=== PATIENT | female | born 1955 | race Caucasian/White ===

== ENCOUNTER 2018-12-29 01:56 | Emergency (ER) | payer BC, SELFPAY ==
[2018-11-21 10:36] VITALS: BMI 30.1
[2018-12-29 01:57] VITALS: BP 155/92; PULSE 87; RESP 16; TEMP 36.8; O2SAT 95; BMI 30.7
--- NOTE | 2018-12-29 02:15 | RAD_ITS ---
STUDY: X-RAY - RIGHT KNEE REASON FOR EXAM: Female, 63 years old. Fall and pain TECHNIQUE: 4 view(s) of the knee. COMPARISON: None. FINDINGS: Normal visualized distal femur. Normal visualized proximal tibia and fibula. Normal proximal tibiofibular articulation. There is moderate degenerative arthrosis of the medial femorotibial compartment with moderate joint space narrowing. Normal lateral femorotibial compartment. Normal patellofemoral articulation. Nondisplaced mid patellar fracture. Suprapatellar effusion. RAD/Knee 4 or More Views IMPRESSION: Nondisplaced mid patellar fracture. Electronically Signed: Gildardo Morel MD at 2:54 EST Tel , Service support ,
--- NOTE | 2018-12-29 02:16 | ED.DCSUM_ITS ---
- ER Visit Summary Date of Service: 12/29/18 Chief Complaint: Fall, right knee pain History of Present Illness: The patient is a 63 F presenting after fall. Patient states that she tripped on a slippery floor and fell forward landing on both of her knees. She complains of right knee pain. Her left knee has been replaced. She did not hit her head or lose consciousness. She is not on anticoagulants. Denies other injuries. Physical Examination: Vitals are stable. Patient is afebrile. Alert no acute distress. HEENT exam is unremarkable. Neck is nontender. Lungs are clear and equal bilaterally. Heart is regular rate and rhythm. Abdomen is soft nontender nondistended. Extremities right anterior knee tenderness with painful range of motion. Quadricep mechanism intact. Normal distal pulses Skin is warm and dry. No focal neurologic deficit. Remainder of exam is unremarkable. Emergency Department Course and Treatment: Patient was given [place]. Ice pack was applied. Right knee x-ray shows nondisplaced mid patellar fracture. Patient was given knee immobilizer, crutches. She is advised nonweightbearing. Advised to follow-up with orthopedics. She is given prescription for Percocet. Advised return to ED for worsening complaints. Disposition: Discharge home Impression: Right patella fracture status post mechanical fall This note was generated with [employer] dictation software. It may contain incorrect words, spelling, and punctuation that were not noted in review of the chart prior to signing ED Disposition - Plan for ED Patient: Instructions: Patella Fracture Prescriptions: Oxycodone HCl/Acetaminophen [Percocet 5/325] 1 tab PO Q6H PRN PRN 3 Days #12 tab PRN Reason: Pain Prescription Printed Referrals: Chandu Martinez [Primary Care Provider] - Doug Mcadams MD [STAFF PHYSICIAN] -
[2018-12-29] MEDS: HYDROcodone Bitartrate/Apap 5/325 Tablet PO (02:25)
--- NOTE | 2018-12-29 03:17 | ED.DEP ---
ED Disposition - Plan for ED Patient: Instructions: Patella Fracture Prescriptions: Oxycodone HCl/Acetaminophen [Percocet 5/325] 1 tablet PO Q6H PRN PRN 3 Days #12 tablet PRN Reason: Pain Referrals: Chandu Martinez [Primary Care Provider] - Doug Mcadams MD [STAFF PHYSICIAN] -
[2018-12-29 03:36] VITALS: BP 149/81; PULSE 83; RESP 17; O2SAT 96
== END 2018-12-29 03:38 | disposition home or self-care (01) ==
PROVIDERS: Emergency Provider Emergency Medicine; Family Provider Internal Medicine; PCP Internal Medicine
DX: S82.001A Unspecified fracture of right patella, initial encounter for closed fracture (principal); I10 Essential (primary) hypertension; E78.00 Pure hypercholesterolemia, unspecified; Z79.899 Other long term (current) drug therapy; W01.0XXA Fall on same level from slipping, tripping and stumbling without subsequent striking against object, initial encounter; Y93.01 Activity, walking, marching and hiking; Y92.9 Unspecified place or not applicable; Y99.8 Other external cause status
CPT/HCPCS: 73564; 99284

== ENCOUNTER → 2019-10-11 | Outpatient (CLI) | payer BC, SELFPAY ==
--- NOTE | 2019-10-11 14:10 | BI_ITS ---
MAMMOGRAPHY - BILATERAL SCREENING REASON FOR EXAM: Female, 64 years old. Routine annual screening examination. PERTINENT HISTORY: Daughter with breast cancer. Sister with breast cancer. Grandmother with breast cancer. TECHNIQUE: Digital bilateral breast remi (3D mammographic acquisition) in the CC and MLO projections. 2-D mediolateral oblique (MLO) and craniocaudad (CC) views of both breasts were obtained. CAD: Full Field Digital Mammography with Computer Added Detection was performed. COMPARISON: Comparison is made with prior study dated 01/14/2017 and 04/21/2015. FINDINGS: Breast Composition: There are scattered areas of fibroglandular density. There are no dominant masses or suspicious calcifications. No other significant abnormalities are identified. There has been no significant change since the prior study. BI/SCREEN MAMM (CAD) W/REMI BILAT IMPRESSION: Stable bilateral screening mammogram. Yearly follow-up mammogram recommended. (A) ASSESSMENT CATEGORY: BIRADS Category 1: Negative. A letter regarding these results will be sent to the patient by the facility within 30 days. Approximately 10% of breast cancers are not detected by mammography. A normal mammogram should not delay biopsy of a clinically suspicious abnormality. [id number] Electronically Signed: Martin Moreno, at 15:15 EDT , Service support ,
== END | disposition home or self-care (01) ==
PROVIDERS: PCP Internal Medicine; Referring Provider Internal Medicine; Visit Provider Internal Medicine
DX: Z12.31 Encounter for screening mammogram for malignant neoplasm of breast (principal)
CPT/HCPCS: 77063; 77067

== ENCOUNTER 2020-12-25 13:20 | Emergency (ER) | payer BC, SELFPAY ==
[2020-12-25 13:21] VITALS: BP 148/77; PULSE 96; RESP 17; TEMP 35.9; O2SAT 96; BMI 32.5
[2020-12-25 13:24] VITALS: BP 148/77
--- NOTE | 2020-12-25 13:51 | US_ITS ---
STUDY: ABDOMINAL ULTRASOUND - RIGHT UPPER QUADRANT REASON FOR VISIT: Female, 65 years old . 2 day history of epigastric pain. TECHNIQUE: Ultrasound evaluation of the right upper quadrant was performed with real-time and static short-scale imaging. TECHNICAL QUALITY: Adequate. COMPARISON: None. FINDINGS: Liver: The liver is enlarged and measures 20.9 cm. There is increased echogenicity consistent with fatty infiltration. The bile ducts are within normal limits. There is hepatic color flow. The direction of portal flow is hepatopetal. There is no demonstrated mass lesion. Gallbladder: Normal distended gallbladder. The gallbladder wall measures 1.8 mm. There is a negative sonographic Paz''s sign. There is no pericholecystic fluid. There are no gallstones. 2 small polyps are seen in the gallbladder lumen. Common Bile Duct (C.B.D.): The common bile duct measures 4.8 mm. Pancreas: Normal size of the head, body and tail of the pancreas. There is increased echogenicity of the pancreas. There is no demonstrated pancreatic mass or cyst. Right Kidney: Normal size of the right kidney. The right kidney measures 13.9 cm x 6.2 cm x 4.2 cm. Normal renal cortex. The right cortex measures 1.2 cm. There is no demonstrated renal mass or cyst. There is no right hydronephrosis. US/Gallbladder IMPRESSION: Hepatomegaly. Fatty infiltration of the liver. There are 2 small gallbladder polyps. Electronically Signed: Martin Moreno MD at 15:18 EST , Service support ,
--- NOTE | 2020-12-25 13:52 | EX.ED.DYSGE1 ---
HPI History of Present Illness Chief Complaint: Abd Pain Informant: patient Onset/Context/Timing Onset: Yesterday Current Severity: Mild Maximum Severity: Moderate Narrative Narrative: Patient presents with upper abdominal pain, nausea, diarrhea as well as headache. She states that them started last evening when she got home from work. She had significant pain in the epigastric region with difficulty sleeping. Pain is slightly improved this morning. She denies fever but did have chills. She states she had similar symptoms 2 weeks ago that resolved after 1 day. She recently had a colonoscopy performed where she had 3 polyps removed. She states she just got the report back that they were all benign. [facility] Medical History (Updated 12/25/20 @ 16:[address] Tiara Kohli MD) Arthritis Back pain DDD (degenerative disc disease), lumbar Hay fever Hx of renal calculi Hypertension Knee pain Home Medications amlodipine 5 mg tablet 5 mg PO QDAY 01/17/17 [History Last Taken Unknown] evolocumab 140 mg/mL subcutaneous syringe 140 mg SC Q2W 01/17/17 [History Last Taken Unknown] potassium chloride 8 mEq capsule,extended release 8 meq PO QDAY 01/17/17 [History Last Taken Unknown] omeprazole magnesium [Prilosec] 20 mg PO DAILY #20 ea 12/25/20 [Rx Last Taken Unknown] Allergy/AdvReac Type Severity Reaction Status Date / Time ciprofloxacin [From Cipro] Allergy Other Verified 12/25/20 13:20 ciprofloxacin HCl Allergy Other Verified 12/25/20 13:20 [From Cipro] Penicillins [PCN] Allergy Hives Verified 12/25/20 13:20 Family History Other Arthritis Breast cancer Colon cancer High cholesterol Hypertension Osteoporosis Skin cancer Surgical History H/O hysterectomy for benign disease Knee joint replacement status Social History Smoking Status: Never smoker alcohol intake: never substance use type: does not use what type of physical activity do you participate in: walking frequency: 1-2 times per week duration: 15-30 minutes/day ROS ROS ED Constitutional Constitutional ED: Reports chills; Denies fever(s) Eyes Eyes: Denies blurry vision ENT ENT ED: Denies rhinorrhea or sore throat Cardiovascular Cardiovascular: Denies chest pain or palpitations Respiratory/Chest Respiratory/Chest: Denies cough or dyspnea Gastrointestinal Gastrointestinal: Reports abdominal pain, diarrhea and nausea; Denies vomiting Genitourinary Genitourinary ED: Denies dysuria Musculoskeletal Musculoskeletal: Denies neck pain Integumentary Denies rash Neurologic Neurologic: Reports headache(s) Psychiatric Psychiatric: Denies anxiety or depression Endocrine Endocrinology: Denies polydipsia or polyuria Allergic/Immunologic Allergic/Immunologic ED: Denies urticaria EXAM Physical Exam Const Vital Signs: 12/25/20 13:21 12/25/20 13:24 12/25/20 15:13 Temperature 96.7 F L Temperature Source Temporal Pulse Rate 96 89 Respiratory Rate 17 14 Blood Pressure 148/77 H 148/77 H 130/85 H Blood Pressure Mean 100 100 100 Pulse Ox 96 92 Oxygen Delivery Method Room Air Room Air Positive well nourished and well developed General Appearance ED: well developed HEENT Reports moist mucous membranes Eyes PERRL and EOMs intact bilaterally Neck no lymphadenopathy and supple Chest Wall inspection of chest normal and palpation of chest normal Resp normal respiratory effort and clear to auscultation bilaterally Cardio regular rate and regular rhythm GI Auscultation: normoactive bowel sounds Palpation: soft and tender epigastric; Negative for guarding or rebound tenderness present Neuro oriented x3 Sensorium / Orientation: alert Skin no rashes or lesions noted MDM MDM MDM Narrative Medical decision making narrative: Lab work and right upper quadrant ultrasound obtained. Patient was given a dose of morphine and Zofran for pain and nausea. Lab Data Attestation: I reviewed the patient's lab results. Labs: Laboratory Results - last 24 hr 12/25/20 12/25/20 14:13 14:13 WBC 7.6 RBC 5.05 Hgb 15.6 H Hct 43.6 MCV 86.3 MCH 30.9 MCHC 35.8 RDW Std Deviation 38.1 RDW Coeff of Kiley 12.0 Plt Count 210 MPV 9.3 Immature Gran % (Auto) 0.400 Neut % (Auto) 82.0 H Lymph % (Auto) 10.5 L Owen % (Auto) 5.5 Eos % (Auto) 1.3 Baso % (Auto) 0.3 Absolute Neuts (auto) 6.3 Absolute Lymphs (auto) 0.80 L Nucleated RBC % 0 Sodium 138 Potassium 2.9 L Chloride 103 Carbon Dioxide 27.0 Anion Gap 8 BUN 12 Creatinine 0.70 Estim Creat Clear Calc 90.75 Est GFR (MDRD) Af Amer 109 Est GFR (MDRD) Non-Af 90 BUN/Creatinine Ratio 17.3 Glucose 143 H Calcium 8.4 L Total Bilirubin 0.70 Direct Bilirubin 0.20 AST 15 ALT 25 Alkaline Phosphatase 74 Total Protein 6.7 Albumin 3.3 Globulin 3.4 Lipase 77 Radiography Diagnostic Testing: Clinical Impression(s) from Imaging Studies Gallbladder Ultrasound 12/25/20 13:51 IMPRESSION: Hepatomegaly. Fatty infiltration of the liver. There are 2 small gallbladder polyps. Electronically Signed: Martin Moreno MD at 15:18 EST , Service support , Treatment and Re-Evaluation Comments:: Patient's lab work is reviewed with her. Potassium is low at 2.9. She states she does take 20 mEq of potassium daily. I did encourage her to double this to 40 mEq for the next 3 days. She still complained of epigastric pain and is given a GI cocktail. She will be given a prescription for Prilosec. Discharge Plan Triage Chief Complaint: Abd Pain ED Provider: Tiara Kohli Dx/Rx/DC Orders Clinical Impression: Epigastric abdominal pain, Hypokalemia Instructions: ED Hypokalemia, ED Epigastric Pain Uncertain Cause Prescriptions: New Prilosec 10 mg susp,delayed release for recon 20 mg PO DAILY Qty: 20 RF: 0 No Action evolocumab [Repatha Syringe] 140 mg/mL syringe 140 mg SC Q2W RF: 0 potassium chloride 8 mEq capsule, extended release 8 meq PO QDAY RF: 0 amlodipine 5 mg tablet 5 mg PO QDAY RF: 0 Primary Care Provider: Chandu Martinez Referrals: Chandu Martinez DO [Primary Care Provider] - 1-2 Weeks Activity Restrictions/Additional Instructions: As discussed, your potassium is low today. Please double your potassium to 40 mEq daily for the next 3 days. Disposition Disposition: Home, Self Care
[2020-12-25] MEDS: Ondansetron 4 MG/2 ML Vial IV (14:15)
[2020-12-25] MEDS: Morphine 4 MG/ML Syringe IV (14:15)
[2020-12-25] MEDS: 0.9% Normal Saline 1,000 ML 150 ML IV (14:15)
[2020-12-25 14:23] LABS: Absolute Neutrophil Count 6.3 X10^3/uL (2.0-7.7); Basophil# 0.02 X10^3/uL; Basophil% 0.3 % (0-1); Eosinophils% 1.3 % (0-5); Hematocrit 43.6 % (37-47); Hemoglobin 15.6 g/dL (12.0-15.0); Lymphocyte % 10.5 % (19-41); Mean Corp Hgb Conc 35.8 g/dL (32-36); Mean Corpuscular Hgb 30.9 pg (27.0-32.0); Mean Corpuscular Volume 86.3 fL (81-99); Mean Platelet Vol. 9.3 fl (6.2-12.0); Monocyte# 0.42 X10^3/uL; Monocyte% 5.5 % (0-10); NRBC Flagged by Analyzer 0 % (0-5); Neutrophil # 6.26 X10^3/uL (2.7-7.7); Platelet Count 210 K/mm3 (150-450); RBC Distribution Width SD 38.1 fl (35.1-43.9); Red Blood Count 5.05 M/mm3 (4.2-5.4); White Blood Count 7.6 K/mm3 (4.4-11.0)
[2020-12-25 14:51] LABS: AST(SGOT) 15 U/L (15-37); Alanine Aminotransfer ALT/SGPT 25 U/L (13-56); Albumin, Serum 3.3 g/dL (3.2-5.0); Alkaline Phosphatase 74 U/L (45-117); Anion Gap 8 (5-15); BUN 12 mg/dL (7-18); BUN/Creat Ratio 17.3 RATIO (10-20); Calcium,Total 8.4 mg/dL (8.5-10.1); Chloride 103 mmol/L (98-107); EST Glomerular Filtration Rate 90 mL/min (>60); Est Glom Filt Rate - Afr Amer 109 mL/min (>60); Estimated Creatinine Clearance 90.75 ml/min; Globulin 3.4 g/dL (2.2-4.2); Glucose 143 mg/dL (74-106); Lipase 77 U/L (73-393); Potassium 2.9 mmol/L (3.5-5.1); Protein, Total 6.7 g/dL (6.4-8.2); Sodium Level 138 mmol/L (136-145)
[2020-12-25 15:13] VITALS: BP 130/85; PULSE 89; RESP 14; O2SAT 92
[2020-12-25] MEDS: Mag Hydrox/Al Hydrox/Simeth 30 ML UDC PO (16:04)
[2020-12-25 16:20] VITALS: BP 130/64; PULSE 86; RESP 16; O2SAT 95
[2020-12-25] MEDS: Acetaminophen 500 MG Tablet 1000 MG PO (16:24)
--- NOTE | 2020-12-25 16:38 | ED.RN ---
THIS NURSE REVIEWED D/C INSTRUCTIONS WITH PT. PT VERBALIZED UNDERSTANDING OF INSTRUCTIONS. PT DENIES FURTHER NEED OR QUESTIONS AT THIS TIME.
== END 2020-12-25 16:39 | disposition home or self-care (01) ==
PROVIDERS: Emergency Provider Emergency Medicine; PCP Internal Medicine
DX: R10.13 Epigastric pain (principal); E87.6 Hypokalemia; M19.90 Unspecified osteoarthritis, unspecified site; I10 Essential (primary) hypertension; Z79.899 Other long term (current) drug therapy
CPT/HCPCS: 76705; 80048; 80076; 83690; 85025; 96361; 96374; 96375; 99284; J7030; A4216; J2405

== ENCOUNTER → 2021-01-06 07:15 | Outpatient (CLI) | payer BC, SELFPAY ==
--- NOTE | 2021-01-06 07:25 | US_ITS ---
STUDY: ABDOMINAL ULTRASOUND - ELASTOGRAPHY REASON FOR VISIT: Female, 65 years old. Nonalcoholic steatohepatitis. . TECHNIQUE: Liver stiffness measurements were obtained on a TickPick RS 85 ultrasound machine using a CA 1-7 probe following the SRU guidelines. 3 measurements were obtained using a 2-D-SWE method. TheIQR/M was 22% suggesting a quality data set. TECHNICAL QUALITY: Adequate. COMPARISON: Comparison is made with prior study 12/25/2020. FINDINGS: Liver: Hepatomegaly. Fatty infiltration of the liver. Median liver stiffness measured 7.3 kPa. US/Elastography Parenchyma/Organ IMPRESSION: Liver stiffness measures 7.3 kPa compatible with F2 Metavir score. Electronically Signed: Martin Moreno MD at 8:45 EST , Service support ,
== END ==
PROVIDERS: PCP Internal Medicine; Referring Provider Internal Medicine Gastroenterology; Visit Provider Internal Medicine Gastroenterology
DX: K75.81 Nonalcoholic steatohepatitis (NASH) (principal)
CPT/HCPCS: 76981

== ENCOUNTER → 2021-02-04 13:35 | Outpatient (CLI) | payer BC, SELFPAY | PROVIDERS: PCP Internal Medicine; Referring Provider Physician Assistant Medical; Visit Provider Physician Assistant Medical | DX: U07.1 COVID-19 (principal) | CPT/HCPCS: 87635; U0005; U0003 ==

== ENCOUNTER 2021-02-26 13:47 | Outpatient (CLI) | payer BC, SELFPAY ==
[2021-02-26 15:35] LABS: Absolute Lymphocyte Count 2.13 X10^3/uL (0.83-4.51); Absolute Neutrophil Count 3.8 X10^3/uL (2.0-7.7); Basophil# 0.03 X10^3/uL; Basophil% 0.4 % (0-1); Eosinophil# 0.29 X10^3/uL; Eosinophils% 4.2 % (0-5); Hemoglobin 15.8 g/dL (12.0-15.0); Lymphocyte # 2.13 X10^3/ul (0.83-4.51); Lymphocyte % 30.8 % (19-41); Mean Corp Hgb Conc 35.9 g/dL (32-36); Mean Corpuscular Hgb 30.7 pg (27.0-32.0); Mean Corpuscular Volume 85.4 fL (81-99); Mean Platelet Vol. 10.1 fl (6.2-12.0); Monocyte% 8.7 % (0-10); NRBC Flagged by Analyzer 0 % (0-5); Neutrophil # 3.84 X10^3/uL (2.7-7.7); Neutrophil % 55.6 % (47-70); Platelet Count 218 K/mm3 (150-450); RBC Distribution Width CV 12.1 % (11.6-14.6); RBC Distribution Width SD 37.8 fl (35.1-43.9); Red Blood Count 5.15 M/mm3 (4.2-5.4); White Blood Count 6.9 K/mm3 (4.4-11.0)
[2021-02-26 16:10] LABS: ALB/GLOB Ratio 1.1 RATIO (0.9-2.4); AST(SGOT) 20 U/L (15-37); Alanine Aminotransfer ALT/SGPT 34 U/L (13-56); Albumin, Serum 3.6 g/dL (3.2-5.0); Alkaline Phosphatase 73 U/L (45-117); Anion Gap 4 (5-15); BUN 15 mg/dL (7-18); CRP < 2.90 mg/L (0.0-3.0); Calcium,Total 9.1 mg/dL (8.5-10.1); Chloride 106 mmol/L (98-107); Creatinine, Serum 0.68 mg/dL (0.55-1.02); EST Glomerular Filtration Rate 92 mL/min (>60); Est Glom Filt Rate - Afr Amer 111 mL/min (>60); Globulin 3.4 g/dL (2.2-4.2); Glucose 121 mg/dL (74-106); LDH 215 U/L (84-246); Sodium Level 139 mmol/L (136-145)
[2021-02-26 16:24] LABS: Erythrocyte Sedimentation Rate 5 mm/hr (0-30)
[2021-03-01 09:32] LABS: HIV - WCH Non-Reactive (Nonreactive); Hepatitis B Surface Antigen Non-Reactive (Nonreactive)
[2021-03-01 10:04] LABS: Hepatitis C Antibody REACTIVE (Nonreactive)
[2021-03-01 13:07] LABS: Anti-Centromere B Ab <0.2 AI (0.0-0.9); Anti-Chromatin <0.2 AI (0.0-0.9); Anti-Jo <0.2 AI (0.0-0.9); Anti-Scleroderma-70 AB 0.5 AI (0.0-0.9); RNP Ab <0.2 AI (0.0-0.9); SJOGREN'S Anti-SS-A test 0.2 AI (0.0-0.9); SJOGREN'S Anti-SS-B test < 0.2 AI (0.0-0.9); Smith Ab <0.2 AI (0.0-0.9)
[2021-03-01 14:29] LABS: Anti-dsDNA Ab 1 IU/mL (0-9)
[2021-03-04 00:07] LABS: HCV Quant. RNA PCR HCV Not Detected IU/mL (.); Hepatitis A AB, Total Negative (Negative); Hepatitis B Core Ab Total Negative (Negative)
[2021-03-04 08:37] LABS: Hepatitis B Core AB IgM Negative (Negative)
== END 2021-02-26 23:59 | disposition short-term general hospital (02) ==
LOC: LAB 13:49
PROVIDERS: PCP Internal Medicine; Visit Provider Internal Medicine Gastroenterology
DX: B19.20 Unspecified viral hepatitis C without hepatic coma (principal)
CPT/HCPCS: 36415; 80053; 83615; 85025; 85652; 86140; 86225; 86235; 86703; 86704; 86705; 86708; 86803; 87340; 87521; 87522; 87902

== ENCOUNTER 2021-03-04 15:52 | Outpatient (CLI) | payer BC, SELFPAY ==
[2021-03-04 17:51] LABS: Cholesterol 176 mg/dL (200); High Density Lipoprotein 58 mg/dL; Triglycerides 229 mg/dL; Very Low Density Lipoprotein 46 mg/dL (5-40)
[2021-03-04 17:53] LABS: Partial Thromboplast Time 31.4 Seconds (24.1-36.2)
[2021-03-04 17:57] LABS: Prothrombin Time (Protime)PT. 12.7 SECONDS (11.7-14.9)
== END 2021-03-04 23:59 | disposition short-term general hospital (02) ==
PROVIDERS: Nurse Practitioner Adult Health; PCP Internal Medicine; Visit Provider Internal Medicine Gastroenterology
DX: K76.0 Fatty (change of) liver, not elsewhere classified (principal); R16.0 Hepatomegaly, not elsewhere classified
CPT/HCPCS: 36415; 80061; 85610; 85730

== ENCOUNTER 2021-03-26 13:14 | Outpatient (CLI) | payer BC, SELFPAY ==
--- NOTE | 2021-03-26 13:24 | MRI_ITS ---
STUDY: MRI RIGHT KNEE REASON FOR EXAM: Female, 65 years old. RIGHT medial knee swelling, pain of joint, arthritis TECHNIQUE: Standardized fat and water weighted pulse sequences were obtained in all 3 orthogonal planes. COMPARISON: Right knee x-ray dated March 15, 2021 FINDINGS: There is severe narrowing in the medial compartment with [id number] contact and full-thickness loss of cartilage. The body and posterior horn medial meniscus are completely torn and macerated and extruded. The anterior horn is normal. Multiple small to large parameniscal cysts are present on the medial side of the joint, some herniating beyond the medial collateral ligament resulting in distention of the space between the capsule and outer band. The largest cyst measures 2.48 cm in diameter. Bulky peripheral osteophyte formation is present. Normal medial collateral ligamentous complex (MCL). Normal distal semimembranosus, gracilis and semitendinosus tendons. There is attrition of the free edge of the lateral meniscus without a demonstrated meniscal tear. There is diffuse, less than 50% thickness articular cartilage loss of the lateral femorotibial compartment. There is mild osteoarthritic spur formation of the lateral knee compartment. Normal proximal tibiofibular articulation. Normal lateral collateral (fibular) ligament. Normal popliteus tendon. Normal biceps femoris tendon. There is edema with swelling and loss of definition of the of the ACL fascicles, producing a celery stick appearance, with preservation of the continuity of fibers, consistent with mucoid cystic degeneration. Normal posterior cruciate ligament (PCL). Normal congruent patellofemoral articulation. There is diffuse, full thickness articular cartilage loss of the patellofemoral compartment, with mild peripheral cortical osteophyte formation. Normal medial and lateral patellar retinaculum. Normal quadriceps tendon. Normal patellar tendon. Normal Hoffa''s fat pad. Small joint effusion noted. Small Angel''s cyst also noted. Mild edema is present in the distal fibers of the vastus medialis muscle. The soft tissues are unremarkable. The otherwise visualized osseous structures are unremarkable. MRI/Lower Ext Joint Only (Routine) IMPRESSION: 1. Severe DJD of the medial compartment with maceration and tearing of the meniscus and other osteoarthritic changes. 2. Numerous parameniscal cysts extruded from the torn meniscus into the space between the medial collateral ligament and medial joint capsule Electronically Signed: Rahul Whitten MD at 19:05 EST ,
== END 2021-03-26 23:59 | disposition home or self-care (01) ==
LOC: MRI 13:24
PROVIDERS: PCP Internal Medicine; Referring Provider Orthopaedic Surgery; Visit Provider Orthopaedic Surgery
DX: R23.4 Changes in skin texture (principal); R22.41 Localized swelling, mass and lump, right lower limb; M17.11 Unilateral primary osteoarthritis, right knee
CPT/HCPCS: 73721

== ENCOUNTER 2021-04-15 14:50 | Outpatient (CLI) | payer BC, SELFPAY ==
--- NOTE | 2021-04-15 15:02 | CT_ITS ---
STUDY: CT right Lower Extremity W/O Contrast Injection 04/15/2021 4:10 PM REASON FOR EXAM: Female, 65 years old. templating for a right TKA Individualized dose optimization techniques were used for this CT. TECHNIQUE: templating for a right TKA LJ protocol COMPARISON: No priors for comparison. FINDINGS: A celia was placed along the lateral aspect of the patient''s lower extremity. CT scans were obtained over the hip, knee, and ankle, separately. IMPRESSION: The images will be utilized by the surgical prosthesis pig conveyor operator for measurement and planning purposes.. Electronically Signed: Chicho Smith MD at 16:10 EST , CT/Extremity Lower without Contra
== END 2021-04-15 23:59 | disposition home or self-care (01) ==
LOC: CT 14:51
PROVIDERS: PCP Internal Medicine; Referring Provider Orthopaedic Surgery; Visit Provider Orthopaedic Surgery
DX: M17.11 Unilateral primary osteoarthritis, right knee (principal)
CPT/HCPCS: 73700

== ENCOUNTER 2021-04-27 05:44 | Inpatient (IN) | payer BC, SELFPAY ==
--- NOTE | 2021-04-20 10:12 | EKG12_ITS ---
Test Reason : PREOP Blood Pressure : / mmHG Vent. Rate : 083 BPM Atrial Rate : 083 BPM P-R Int : 130 ms QRS Dur : 088 ms QT Int : 386 ms P-R-T Axes : -03 020 034 degrees QTc Int : 453 ms Normal sinus rhythm Normal ECG Confirmed by STACIE HILL, SHUBHAM ([id number]), school photograph editor LUCA RAMOS ([id number]) on 04/21/2021 9:54:36 AM Referred By: Milan Cosme Confirmed By:SHUBHAM QUINONES MD
[2021-04-20 11:22] LABS: Absolute Lymphocyte Count 1.63 X10^3/uL (0.83-4.51); Absolute Neutrophil Count 4.4 X10^3/uL (2.0-7.7); Basophil# 0.04 X10^3/uL; Basophil% 0.6 % (0-1); Eosinophil# 0.28 X10^3/uL; Eosinophils% 4.1 % (0-5); Hematocrit 46.4 % (37-47); Hemoglobin 16.3 g/dL (12.0-15.0); Lymphocyte # 1.63 X10^3/ul (0.83-4.51); Mean Corp Hgb Conc 35.1 g/dL (32-36); Mean Corpuscular Hgb 30.8 pg (27.0-32.0); Mean Corpuscular Volume 87.5 fL (81-99); Mean Platelet Vol. 10.2 fl (6.2-12.0); Monocyte# 0.46 X10^3/uL; Monocyte% 6.8 % (0-10); NRBC Flagged by Analyzer 0 % (0-5); Neutrophil # 4.36 X10^3/uL (2.7-7.7); Neutrophil % 64.1 % (47-70); Platelet Count 229 K/mm3 (150-450); RBC Distribution Width CV 12.5 % (11.6-14.6); RBC Distribution Width SD 40.2 fl (35.1-43.9); White Blood Count 6.8 K/mm3 (4.4-11.0)
[2021-04-20 11:33] LABS: Prothrombin Time (Protime)PT. 12.3 SECONDS (11.7-14.9)
[2021-04-20 11:34] LABS: Partial Thromboplast Time 30.8 Seconds (24.1-36.2)
[2021-04-20 11:44] LABS: Magnesium 1.8 mg/dL (1.6-2.6)
[2021-04-20 11:46] LABS: Anion Gap 4 (5-15); BUN 14 mg/dL (7-18); BUN/Creat Ratio 18.9 RATIO (10-20); Calcium,Total 9.2 mg/dL (8.5-10.1); Chloride 104 mmol/L (98-107); Creatinine, Serum 0.74 mg/dL (0.55-1.02); EST Glomerular Filtration Rate 84 mL/min (>60); Est Glom Filt Rate - Afr Amer 101 mL/min (>60); Glucose 130 mg/dL (74-106); Potassium 3.2 mmol/L (3.5-5.1); Sodium Level 141 mmol/L (136-145)
[2021-04-21 13:36] LABS: Fructosamine 261 umol/L (0-285)
[2021-04-27] VITALS (14 sets, daily range): BP systolic 90–142; BP diastolic 52–79; PULSE 73–95; RESP 14–18; TEMP 36.3–37; O2SAT 95–99; BMI 32.8
[2021-04-27] MEDS: Lactated Ringers 1,000 ML 15 ML IV (06:25)
[2021-04-27] MEDS: Gabapentin 600 MG Tablet PO (06:47)
[2021-04-27] MEDS: Celecoxib 200 MG Capsule 400 MG PO (06:47)
[2021-04-27] MEDS: Scopolamine 1mg/72hr Patch 1 PATCH TD (06:47)
[2021-04-27] MEDS: Acetaminophen 500 MG Tablet 1000 MG PO ×3 (06:47→20:42)
--- NOTE | 2021-04-27 07:27 | PCM.HP.BLA ---
History and Physical Date of Admission: 04/27/21 Date of Service: 04/16/21 MR#:[id number]:[id number]: KYMBERLY REED #:[id number]:1955 Provider:Dr. Milan Cosme DOAge/Sex: 65/F Location:[facility]:Signed Intake Intake Visit Reasons: right knee Chief Complaint: right knee Allergies ciprofloxacin HCl [From Cipro] Allergy (Verified 03/04/21 14:50) Other Penicillins [PCN] Allergy (Verified 03/04/21 14:50) Hives [facility] Medical History (Updated 04/16/21 @ 11:[address] Milan Cosme DO) Arthritis Back pain DDD (degenerative disc disease), lumbar Diarrhea Enlarged liver Gastric reflux Hay fever Hepatitis C High cholesterol Hx of renal calculi Hypertension Knee pain Wears glasses Wears partial dentures Surgical History (Updated 01/26/21 @ 09:58 by Agnes Torres) H/O hysterectomy for benign disease Hx of lithotripsy Knee joint replacement status Family History Other Arthritis Breast cancer Colon cancer High cholesterol Hypertension Osteoporosis Skin cancer Social History Smoking Status: Never smoker alcohol intake: never substance use type: does not use what type of physical activity do you participate in: walking frequency: 1-2 times per week duration: 15-30 minutes/day HPI right knee Details: Parts of this documentation were recorded by a scribe, this documentation accurately reflects the service provided and the decisions made by me, Dr. Milan Cosme DO 04/16/21 1115. KYMBERLY REED is a 65 year old F here today for right knee IOVERA tx. She is scheduled to undergo a right TKA on 04/27/21. Ortho Exam General General: Yes no acute distress Neurologic: Yes alert and Yes oriented x3 Psychologic: Yes reasonable and appropriate Right Knee Skin/Wound: Yes erythema, No ecchymosis and Yes swelling Knee ROM: No ROM-Extension -20 to 0 (lacking 10 ) and No ROM-Flexion 0-140 (110) Examination: Yes Med jt line tenderness Stability: NML: Anterior Drawer and NML: Posterior Drawer KNEE: significant localized swelling over medial knee, area that is firm tender to touch asymmetry of the quad, more atrophic of the righ compaired to left quad. sensation intact to light touch able to preform dorsiflexion and plantar flexion 2/4 pulses to lower extremity. Office Procedures Iovera Procedure Details:: Preoperative diagnosis : righ tknee pain Postoperative diagnosis: Same Procedure: Cryotherapy with Iovera device to anterior femoral cutaneous nerve and 2 branches of the infrapatellar saphenous nerve III nerves in total Description of procedure: Patient was brought back to the procedure room the operative extremity was identified by both patient and physician. The PIP flexion crease was measured to the midpoint of the patella and this distance was divided in 3 resulting in 10 cm location proximal to the midpoint of the patella. This line was extended medial and lateral to the extent of the edges of the patella. This was our treatment line for the anterior femoral cutaneous nerve. A second treatment line was made 5 cm medial to the inferior pole of the patella and 5 cm distally. The leg was prepped with alcohol and Betadine. Lidocaine with epi was used along the treatment lines. Using the Iovera device treatment lines were treated with 1 minute cycles. Reproduction of paresthesias was monitored in the area of nerve distribution. Once all 3 nerves were treated across the 2 treatment lines patient was cleaned and a light dressing with 4 x 4 and Lb wrap was applied. Patient tolerated the procedure without complication. Supplemental Info Reviewed the pre-operative plans with the patient. Risks and benefits of the procedure were fully explained, including but not limited to infection, neurovascular injury, continued pain, arthritis, stiffness, need for further surgery, re-injury, DVT, PE, general risks of anesthesia, and loss of limb or life. The patient understands all the risks and does wish to proceed with written consent for right TKA. She was given surgical soap and presurgical ensure drinks today. She wishes to proceed with IOVERA tx today. Educated that she will keep the DCD in place until this evening and then she shouldn't have to apply a new dressing. No restrictions. Follow up 2 weeks post op or sooner if pain, swelling, numbness or associated symptoms, or concerns develop. All questions answered. Patient in agreement of plan. Coding Level of Care Code Attention Nailhead Setter Diagnoses Right knee pain M25.561 Assessment and Plan Assessment and Plan (1) Right knee pain: Status: Acute Plan - Dr. Milan Cosme, DO: Reviewed the pre-operative plans with the patient. Risks and benefits of the procedure were fully explained, including but not limited to infection, neurovascular injury, continued pain, arthritis, stiffness, need for further surgery, re-injury, DVT, PE, general risks of anesthesia, and loss of limb or life. The patient understands all the risks and does wish to proceed with written consent for right TKA. She was given surgical soap and presurgical ensure drinks today. She wishes to proceed with IOVERA tx today. Educated that she will keep the DCD in place until this evening and then she shouldn't have to apply a new dressing. No restrictions. Follow up 2 weeks post op or sooner if pain, swelling, numbness or associated symptoms, or concerns develop. All questions answered. Patient in agreement of plan. Plan Details Other Orders: Orders: Iovera Today M25.569 Goals & Barriers: Goals Decrease spasm Decrease pain Decrease inflammation Barriers Work requirements 04/16/21 1124<Electronically signed by Milan Cosme DO>Date Milan Cosme DO Cosigner Signature:Date (if applicable) CC: ~ I have re-examined the patient. There are no clinical changes since date of exam
[2021-04-27 08:02] LABS: Bedside Glucose 172 mg/dL (74-106)
--- NOTE | 2021-04-27 08:15 | KNEE_PTH ---
PATIENT: KYMBERLY REED LOC: [facility] U#:[id number] AGE/SX: 65/F ROOM: MS319 RE04/27/[address]: Dr. Milan Cosme DO : 1955 BED: 1 DIS: 04/28/2021 SPEC #: [id number] RECD: 04/27/21 11:14 STATUS: PARUL ADAMSMily #: [id number] ERIC: 04/27/21 08:[address]: Milan Cosme DEPT: SURGICAL PATHOLOGY RECD BY: Glendy Mendoza ENTERED: 04/27/21 13:55 SP TYPE: TOTAL KNEE OTHR DR: Dr. Chandu Martinez, DO Tissues: Knee, NOS Procedures: Decalcification bone/plaque Surgery Specimen Level IV HEADER OPERATION: ERAS, total knee replacement robotic arm assist PRE-OP DIAGNOSIS: Right knee pain TISSUE SUBMITTED: Distal femur and tibia MICROSCOPIC DIAGNOSIS Bone and tissue of right knee, total knee resection: Severe degenerative joint disease. AM:moraima 04/30/2021 MICROSCOPIC DESCRIPTION Slides are reviewed. GROSS DESCRIPTION Received is one container designated distal femur and tibia. The specimen consists of multiple fragments of murphy-yellow bone measuring in aggregate 16 x 12 x 2 cm. Also in the specimen container are multiple fragments of yellow-white soft tissue measuring in aggregate 6 x 3 x 0.5 cm. A number of bony fragments contain articular surfaces consistent with tibial plateau and femoral condyle and displaying prominent osteophyte formation, eburnation, and bone erosion. Under Water Assistant sections are submitted in two cassettes as follows: 1 - soft tissue, 2 - bone after decalcification. / AM:moraima 04/27/2021 TC:5 [facility]: [id number], [id number]
[2021-04-27] MEDS: TXA 1000mg in NS100 100ml (IVPB at Incision) 660 MG IV (08:30)
[2021-04-27] MEDS: TXA 1000mg in NS100 100ml (IVPB at Closure) 660 MG IV (09:05)
[2021-04-27] MEDS: Bupivacaine Mpf 0.5% 30 ML VIAL (10:13)
[2021-04-27] MEDS: Betamethasone/Betamethasone 30 MG/5 ML Vial (10:13)
[2021-04-27] MEDS: Epinephrine (1 mg/ml) 1 MG/ML VIAL (10:13)
[2021-04-27] MEDS: 0.9% Normal Saline (Pres. free 10 ML Vial (10:13)
--- NOTE | 2021-04-27 10:53 | RAD_ITS ---
STUDY: X-RAY - RIGHT KNEE REASON FOR EXAM: Postoperative evaluation of right total knee arthroplasty. TECHNIQUE: 2 view(s) of the knee. COMPARISON: Radiographs 03/15/2021. FINDINGS: There is a right total knee arthroplasty without evidence of complication. There is postoperative gas in the soft tissues and overlying skin juan. RAD/Knee 1 or 2 Views IMPRESSION: Uncomplicated right total knee arthroplasty. Electronically Signed: Marino Wright MD at 14:46 EDT ,
--- NOTE | 2021-04-27 10:57 | OP.PCM_ITS ---
Report of Operation Date of Procedure: 04/27/21 Description of Surgical Findings:: Preoperative diagnosis: Right knee DJD Postoperative diagnosis: Same Procedure: Right total knee arthroplasty CT guided Robotic Assisted Implant: [place] triathlon press fit, femoral component size5, tibial baseplate size 6, asymmetric patella size 38, polyethylene X3 size 9 CS Anesthesia: Spinal with adductor canal block Tourniquet time: 12 minutes at 300 mmHg Complications: None Condition: Stable to PACU Estimated blood loss: 200 cc Indication for procedure: This is a 65-year-old female with long standing degenerative joint disease of the knee who has failed conservative treatment and wished to proceed with elective total knee arthroplasty. Risk benefits and alternatives were reviewed including; risk of bleeding, infection, nerve artery and tissue damage, continued pain, postoperative stiffness, venous throm boembolism, need for postoperative rehabilitation, mechanical feel to the knee, and expected postoperative course. The pre- operative CT and templating was performed with component sizing. Procedure: The patient was met in the preoperative holding area. The operative extremity was identified by both patient and physician and was marked. Patient was met by anesthesia. An adductor canal block was placed by anesthesia postoperatively the patient was brought back to the operating room on a wheeled cart and transferred to the operating table in the supine position. Anesthesia was started. A well-padded tourniquet was placed on the operative extremity. The patient was prepped and draped in the usual sterile fashion. A timeout was called to ensure the proper patient procedure and extremity were being contemplated. An esmarch was used to exsanguinate the extremity. The tourniquet was inflated. A 10 blade scalpel was used to make a midline incision down through the skin and subcutaneous tissue. Skin retractors placed. Bovie and Aquamantis were used to perform meticulous hemostasis. full-thickness flaps were elevated medial and lateral along the joint capsule. A deep blade scalpel was used to perform a medial parapatellar arthrotomy. The knee was brought to full extension. A bovie was used to release the soft tissues off the most proximal aspect of the medial tibial plateau, a three-quarter inch curved osteotome was also used in this process. The infrapatellar fat pad was excised. The suprapatellar fat pad was excised partially anteriorolateraly and portion the anterioromedial pad was elevated from the femur. At this point our intra- articular femoral array was placed at a 45 degree angle proximal and posterior to the medial epicondyle. femoral checkpoint was placed at this time. Our tibial array was placed greater than 1 hands breath below the incision at a 20 degree angle stab incisions were made with a 15 blade scalpel and pins were placed and attached to the tibial array , tibial checkpoint was placed in the proximal tibial metaphysis. Tourniquet was let down. At this point registration still were taken throughout the knee . Once the knee was registered we then tensioned the medial and lateral ligaments in extension and 90 degrees of flexion. We then used these numbers to adjust our components within parameters to balance the knee in both flexion and extension once this was done on our monitor we then proceeded with using the robotic arm to make our tibial plateau cut, anterior and posterior chamfer and distal femur cuts. we removed the cut fragments with the use of a bovie and Josr, we did use a lamina supervisor post wave to insure we visualized and removed all posterior osteophytes and at this time also used the Aquamantis on the posterior joint capsule. we then trialed and achieved the desired plan with a well-balanced knee. we used the green probe to berenice the corresponding tibial rotation based on our CT template. Lug holes were drilled in the femur the tibia preparation was completed with the appropriate sized base plate pinned based on previous rotation berenice. An appropriate sized fin punch was used on the tibia and 4 co rner drill was used for the press fit component and the patella was prepared by first using a caliper to ensure sufficient bone stock and a patellar reamer to remove the desired amount of bone. lug holes drilled for an asymmetric poly. We then brought the knee through range of motion with excellent patellar tracking. We thoroughly irrigated the knee. Trial components were removed a posterior ca psular injection was preformed with our standard cocktail. In addition the aqua Mantis was also used to aid in hemostasis. Betadine rinse was allowed to sit and washed out completely. Components were press-fit into place. Aricept rinse was then used followed by several more liters of irrigation after it was allowed to sit. The joint capsule was closed with #1 Ethibond [id number] followed by Vicryl in the subcutaneous tissues with juan in the skin. Arrays and checkpoints were removed prior to closure all counts were correct stab incisions were closed with a staple standard dressing in the form of Mepilex AG for the main incision and a small Mepilex over the pin holes. Thigh-high MONE hose applied over top of dressing. Patient tolerated the procedure well and was directed to PACU in stable condition . There were no intraoperative complications.
[2021-04-27] MEDS: Lactated Ringers 1,000 ML 125 ML IV (14:27)
[2021-04-27] MEDS: Senna/Docusate Sodium 1 Tablet 2 TABLET PO (20:41)
[2021-04-27] MEDS: Ursodiol 250 MG Tablet PO (20:42)
[2021-04-28] MEDS: oxyCODONE 5 MG Tablet PO ×3 (01:16→10:56)
[2021-04-28 03:14] VITALS: BP 143/87; PULSE 74; RESP 18; TEMP 36.9; O2SAT 98
[2021-04-28 06:23] LABS: Hematocrit 37.3 % (37-47); Hemoglobin 13.1 g/dL (12.0-15.0); Mean Corp Hgb Conc 35.1 g/dL (32-36); Mean Corpuscular Hgb 30.7 pg (27.0-32.0); Mean Corpuscular Volume 87.4 fL (81-99); Mean Platelet Vol. 9.5 fl (6.2-12.0); Platelet Count 202 K/mm3 (150-450); RBC Distribution Width CV 12.5 % (11.6-14.6); Red Blood Count 4.27 M/mm3 (4.2-5.4); White Blood Count 10.5 K/mm3 (4.4-11.0)
[2021-04-28] MEDS: Acetaminophen 500 MG Tablet 1000 MG PO ×2 (06:28→13:43)
[2021-04-28] MEDS: APIXABAN 2.5 MG TABLET PO (06:28)
[2021-04-28 06:47] LABS: Anion Gap 4 (5-15); BUN 11 mg/dL (7-18); BUN/Creat Ratio 15.9 RATIO (10-20); Calcium,Total 8.2 mg/dL (8.5-10.1); Chloride 103 mmol/L (98-107); Creatinine, Serum 0.69 mg/dL (0.55-1.02); EST Glomerular Filtration Rate 91 mL/min (>60); Est Glom Filt Rate - Afr Amer 110 mL/min (>60); Estimated Creatinine Clearance 89.07 ml/min; Glucose 132 mg/dL (74-106); Potassium 3.1 mmol/L (3.5-5.1); Sodium Level 140 mmol/L (136-145)
[2021-04-28 07:29] VITALS: BP 106/54; PULSE 57; RESP 18; TEMP 36.6; O2SAT 97
[2021-04-28] MEDS: Potassium Chloride Oral Tablet 10 MEQ PO (07:32)
[2021-04-28] MEDS: Chlorthalidone 50 MG Tablet 25 MG PO (10:07)
[2021-04-28] MEDS: Senna/Docusate Sodium 1 Tablet 2 TABLET PO (10:07)
[2021-04-28] MEDS: Ursodiol 250 MG Tablet PO (10:08)
[2021-04-28] MEDS: amLODIPine 5 MG Tablet PO (10:08)
--- NOTE | 2021-04-28 11:40 | CASEMGMT ---
Addendum entered by Topher Ugarte 04/28/21 15:50: 1315: Pt stated [facility] 1st choice for HHC and stated only wanted PT/OT, does not feel she needs SN. Order placed. TC to Mary @ [facility] and referral made. They are able to accept pt w/SOC tomorrow 04/29. Pt made aware. Call received from Feb in [facility] retail pharmacy. Dr Cosme had ordered Eliquis. Per Feb, she attempted to apply Eliquis savings card, but received msg that pt has used Eliquis 30-day savings card in the past, so is not eligible to use this again. [id number] cost would be ~$218. Per Feb, Xarelto and Warfarin are preferred rx's by pt's insurance. Dr Cosme made aware of above. He states will d/c Eliquis and order Xarelto. Ricci in [facility] pharm made aware and to apply Xarelto savings card. Pt made aware of above. Pt states she does not recall ever being on Eliquis in the past. Pt aware can f/u w/her insurance co, if she wishes to check into this further in the future. Original Note: RN CM 3D TECHNOLOGIST CM to room to meet with patient for initial transition planning/care coordination assessment. RN CM introduced self and role at [facility]. Pt voices understanding and consents to assessment at this time. Pt sitting up in chair in room in no distress at this time. Pt is A/O at this time and answers all questions appropriately. Care providers, pharmacy, and demographics verified/updated at this time. PCP: Dr Chandu Martinez in [place] Specialists: Dr Cosme--ortho. Dr Prakash-RAPHAEL Preferred Pharmacy: [facility] Retail Insurance: [place] Prescription Benefit: Yes Living Will/HPOA: Pt does not currently have LW/HCPOA and interested in completing. ARABELLA, Mariella, made aware. LNOK: , Serg. Living Arrangements: Lives w/ in one-story home w/1 step to enter. Independent w/ADL's and IADL's prior to surgery. able to assist and friend coming to stay to help as well. Transportation: Pt states drives self and states no transportation concerns at this time. also drives. DME: States has the following DME: shower chair, BSC, RTS, cane, walker, long-handled shoe horn Pt states no need for further DME at this time. HHC/SNF: No hx SNF. Has had HHC in the past. Pt wishes to return home w/HHC. Pt was provided with list of HHC providers including quality and resource use data and consistent with the patient's preferred geographic region, medical needs, and insurance network. Pt wishes to return home and states has no concerns with going home at time of discharge. Pt voices no further concerns/needs at this time. Advised pt to ask for CM if any further questions/concerns/needs arise. Voices understanding. PLAN: Home w/HHC Donna HARRISON RN CM
--- NOTE | 2021-04-28 11:44 | PN.ORTHO_ITS ---
Subjective Subjective Seen and examined doing well pain controlled no fevers chills nausea vomiting shortness of breath or chest pain. Patient states this is gone so much better than her other knee. Objective Data Objective Data Vital Signs: Vital Signs Temp Pulse Resp BP Pulse Ox 97.8 F 57 L 18 106/54 L 97 04/28/21 07:29 04/28/21 07:29 04/28/21 07:29 04/28/21 07:29 04/28/21 07:29 Oxygen Flow Rate (L/min) 3 Oxygen Delivery Method Room Air Weight: 229 lb 4.492 oz Body Mass Index (BMI) 32.8 Intake & Output: Intake and Output for Last 24 Hours 04/26/21 04/27/21 04/28/21 23:59 23:59 23:59 Intake Total 3481.25 / 3481.25 841.25 / 841.25 Balance 3481.25 / 3481.25 841.25 / 841.25 Lab / Micro Data Result Diagrams: 04/28/21 06:13 04/28/21 06:13 Labs: Laboratory Results - last 24 hr 04/28/21 06:13: WBC 10.5, RBC 4.27, Hgb 13.1, Hct 37.3, MCV 87.4, MCH 30.7, MCHC 35.1, RDW Std Deviation 40.0, RDW Coeff of Kiley 12.5, Plt Count 202, MPV 9.5 04/28/21 06:13: Sodium 140, Potassium 3.1 L, Chloride 103, Carbon Dioxide 33.0 H , Anion Gap 4 L, BUN 11, Creatinine 0.69, Estim Creat Clear Calc 89.07, Est GFR (MDRD) Af Amer 110, Est GFR (MDRD) Non-Af 91, BUN/Creatinine Ratio 15.9, Glucose 132 H, Calcium 8.2 L Micro: Microbiology 04/26/21 11:35 Interface Orders SARS-CoV-2 Antigen (Rapid) - Final 04/20/21 10:41 Swab (Method) Nasal Screen MRSA/MSSA - Final Radiography Diagnostic Testing: Radiology Impression Knee X-Ray 04/27/21 10:53 IMPRESSION: Uncomplicated right total knee arthroplasty. Electronically Signed: Marino Wright MD at 14:46 EDT , Physical Exam Const alert and oriented x3 General Appearance: cooperative Extremity Extremity Narrative: Right lower extremity dressing clean dry intact compartments soft neurovascular intact EHL tibialis anterior gastrocsoleus intact sensation light touch palpable pedal pulses Assessment & Plan Assessment/Plan (1) S/P total knee arthroplasty: QUALIFIERS: Laterality: right Qualified Code(s): Z96.651 - Presence of right artificial knee joint PLAN: PT OT weightbearing as tolerated. DC home after second round of PT [facility] Follow-up in the office 2 weeks Eliquis 2.5 mg twice daily for 14 days postop Oxycodone and Tylenol for pain control Dressings to be changed postop day #3 prior to for shower
--- NOTE | 2021-04-28 11:46 | PCM.DC ---
Discharge Instructions Activity Weight Bearing Status: Weight bearing as tolerated Keep extremity elevated above heart level: Operative Extremity Dressing / Incision Call your doctor if you observe: Shortness of breath and Chest pain Additional Dressing/Incision Instructions:: Ice and elevate one week while not ambulating. Ambulation is encouraged. Weightbearing as tolerated. Use assistive devise for stability. Encourage FULL knee extension and flexion 1 time EVERY time you get up and down and MULTIPLE times per day. No showering 72 hours after surgery. Begin showering postop day #3. Remove the dressing prior to shower and gently wash with warm water and antibacterial soap then pat dry and place abdominal pad (or plain gauze) and MONE hose over top. This is to be done daily. Do not submerge for 3 weeks. If not showering daily after the initial 72 hours then you must clean incision and change dressing daily. Do not allow animals near the incision area. Keep clean. Follow anticoagulation recommendations as prescribed. Do not take any NSAIDs while on blood thinner. Take 1000 mg of Tylenol every 6 hours regularly to help minimize narcotic use. Do not take any additional narcotic pain medication other than what was prescribed on your surgery day without discussing with physician. Narcotic medication can be addictive. Do not drink alcohol while taking narcotics. Start physical therapy. If you are not currently scheduled for physical therapy or you are unsure of appointment time please call office [facility] to arrange. Call Dr. Cosme with any concerns. Follow Up Care Please Follow Up With: Milan Cosme DO When: 2 weeks Test Results: Test results from this visit will be discussed in further detail at your follow-up appointment, if applicable. Discharge Plan Admission Admit Date/Time: 04/27/21 05:44 Attending Provider: Milan Cosme Primary Care Provider: Chandu Martinez Discharge Orders/Prescriptions Prescriptions: New Eliquis 2.5 mg Tablet 2.5 mg PO BID Qty: 28 RF: 0 oxycodone 5 mg Tablet 5 - 10 mg PO Q4H PRN PRN (Reason: Pain Score 4-10) 7 Days Qty: 60 RF: 0 Continued potassium chloride 8 mEq capsule, extended release 8 meq PO QDAY RF: 0 amlodipine 5 mg tablet 5 mg PO QDAY RF: 0 chlorthalidone 25 mg tablet 25 mg PO DAILY RF: 0 Praluent Pen 75 mg/mL Pen Injector 75 mg SUBCUT Q14D RF: 0 ursodiol 300 mg capsule 300 mg PO BID RF: 0 Referrals / Follow Up: Chandu Martinez DO [Primary Care Provider] -
[2021-04-28 13:35] VITALS: BP 127/70; PULSE 88; RESP 18; TEMP 36.4; O2SAT 97
== END 2021-04-28 14:55 | disposition home health service (06) | DRG 470 ==
LOC: ACINP 05:46 → MS3 18:13
PROVIDERS: Anesthesiology; Admitting Provider Orthopaedic Surgery; PCP Internal Medicine; Referring Provider Orthopaedic Surgery; Visit Provider Orthopaedic Surgery
PROC: 0SRC0JZ Replacement of Right Knee Joint with Synthetic Substitute, Open Approach (ICD-10-PCS; CPT 27447; principal; 2021-04-27 07:45)
DX: M17.11 Unilateral primary osteoarthritis, right knee (principal); I10 Essential (primary) hypertension; E78.00 Pure hypercholesterolemia, unspecified; K21.9 Gastro-esophageal reflux disease without esophagitis; M10.9 Gout, unspecified; Z20.822 Contact with and (suspected) exposure to COVID-19; Z79.899 Other long term (current) drug therapy; Z96.652 Presence of left artificial knee joint; Z96.651 Presence of right artificial knee joint
CPT/HCPCS: 36415; 73560; 80048; 82962; 82985; 83735; 85025; 85027; 85610; 85730; 86850; 86900; 86901; 87081; 87811; 88305; 88311; 93005; 97110; 97116; 97162; 97166; 97530; 97535; C1776; C9803; J7040; J7120; J0702; J2405; J3490

== ENCOUNTER 2021-07-26 14:00 | Outpatient (RCR) | payer BC, SELFPAY ==
--- NOTE | 2021-06-02 06:53 | HP.PTEVAL ---
Patient's Visit Information KYMBERLY REED is a 66 year old F referred to Physical Therapy by Dr. Milan Cosme DO with a diagnosis of Right TKR 04/27/21. Date of Evaluation: 06/01/21 Physical Therapist: Jazmine Boston DPT - Visit Plan Frequency: 1-2x /Week Duration: 4 Weeks Plan: Right TKR 04/27/21- focus on Functional mobility. HEP Reviewed from - Subjective Right TKR by Dr. Petersen April 27, 2020- had home health and is now ready for outpatient. She was doing really well but then she has had a snap around the knee and the pain radiates down and she can't walk very well. Last time it happened was Monday. Pain is located around the whole knee- pain does radiate down to the ankle. She does have swelling in the ankles but wears MONE hose. She was fully I prior to surgery. She is using a walker but around the house she will sometimes go without it. 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 Pain is located around the whole knee joint. Worst: 8/10 Agg: on her feet a long time like Easter. Best: 0/10 Eases: rest. Sleep: sometimes disturbed. PMHx/Meds: see chart - Objective Posture: FH, RS can correct but does not maintain. Gait: FWW- antalgic- decreased stance on the right LE- decreased heel/toe pattern. Stairs: asc/desc 8 recip with 2 HR and poor control with descent- does report discomfort with both asc and desc. HR/TR: able. SLS: 3-5 sec then LOB. Observation: no s/s of infection-healing well. Girth: patella: 48 cm. Palpation: tender along medial and lateral joint line. ROM: 0-110 degrees without OP. Strength: SLR; no lag Flexion: 30 Extension: 28 Ankle: 5/5. Flex: HS: mild, Gastroc: mild. TUG Test: no AD 13. WOMAC:66.67 - Balance/Special Test Scores WOMAC Total Score: 32 WOMAC Percentatge: 66.6700 - Goals Goal 1:: Patient will be I with HEP and progression Goal Time Frame: 4-6 Weeks Goal 2:: Patient will asc/desc 8 stairs recip with 1 HR Goal Time Frame: 4-6 Weeks Goal 3:: Patient will ambulate >300 feet with LRD and no deviation noted. Goal Time Frame: 4-6 Weeks Goal 4:: Patient will demo 0-115 degrees Goal Time Frame: 4-6 Weeks Goal 5:: Patient will report 80% subjectively better Goal Time Frame: 4-6 Weeks - Rehabilitation Potential Physical Therapy Diagnosis: Patient presents with hypomobility- she has decreased pain free ROM, LE and core strength/stabilization, flex and muscular endurance leading to abnormal gait pattern and decreased ability to perform ADL's. Rehabilitation Potential: Fair - Anticipated Interventions Patient/Client Instruction: Educate patient on: Benefits of Fitness Program Therapeutic Exercise to Include: Strength training, Endurance training, Balance training, Coordination, Agility training, Body mechanics, Postural training, Flexibilty training, Gait and locomotor training, Neuromotor development, Passive ROM, Active ROM, Dynamic Lumbar Stabilization For the Purpose of:: To improve muscle performance and motor function TENS: Yes Cryotherapy (ice pack, ice massage): Yes Thermo therapy (hot pack): Yes Ultrasound (thermal/non thermal): No Thank you for the opportunity to evaluate your patient. For Medicare and Medicare HMO plans, please review the plan of care and approve it. It will need to be FAXED BACK to us at [phone] for Medicare purposes. For Medicare only, by signing this I certify the plan of care. Please let me know if there are questions or concerns regarding this plan of care. Physician Signature: Date:
--- NOTE | 2021-07-01 14:28 | HP.PTREVAL ---
Dr. Milan Cosme, DO, It has been my pleasure to treat KYMBERLY REED over the last 8 visits for Right TKR 04/27/21. Please see the progress note below for an update on the physical therapy plan of care! Subjective: Patient reports that she does not have any feeling and some numbness on the lateral aspect of the knee. She does have some feeling of hyper extension. When she uses her walker she feels stable but less stable with a cane and nothing. She feels unstable. Objective/Function: Posture: FH, RS can correct but does not maintain. Gait: no AD- slightly antalgic- decreased stance on the right LE- decreased heel/toe pattern. Stairs: asc/desc 8 recip with 1 HR and poor control with descent HR/TR: able. SLS: 5 sec then LOB. Observation: no s/s of infection-healing well. Girth: patella: 45.5 cm. Palpation: tender along medial and lateral joint line. ROM: 0-115 degrees without OP. Strength: SLR; no lag Flexion: 45 Extension: 34 Ankle: 5/5. Flex: HS: mild, Gastroc: mild. TUG Test: no AD 10. Plan Plan: 07/01: Continue towards goals- ambulation and stairs. Right TKR 04/27/21- focus on Functional mobility. HEP Reviewed from Balance/Gait/Functional tests - Balance/Special Test Scores WOMAC Total Score: 32 WOMAC Percentage: 66.6700 Goals Goal 1:: Patient will be I with HEP and progression Goal Time Frame: 4-6 Weeks Goal Progress: Progressing Goal 2:: Patient will asc/desc 8 stairs recip with 1 HR Goal Time Frame: 4-6 Weeks Goal Progress: Progressing Goal 3:: Patient will ambulate >300 feet with LRD and no deviation noted. Goal Time Frame: 4-6 Weeks Goal Progress: Progressing Goal 4:: Patient will demo 0-115 degrees Goal Time Frame: 4-6 Weeks Goal Progress: Progressing Goal 5:: Patient will report 80% subjectively better Goal Time Frame: 4-6 Weeks Goal Progress: Progressing Anticipated Interventions Patient/Client Instruction: Educate patient on: Benefits of Fitness Program Therapeutic Exercise to Include: Strength training, Endurance training, Balance training, Coordination, Agility training, Body mechanics, Postural training, Flexibilty training, Gait and locomotor training, Neuromotor development, Passive ROM, Active ROM, Dynamic Lumbar Stabilization For the Purpose of:: To improve muscle performance and motor function TENS: Yes Cryotherapy (ice pack, ice massage): Yes Thermo therapy (hot pack): Yes Ultrasound (thermal/non thermal): No Please do not hesitate to contact me at [phone] by phone or if you have questions or concerns regarding this new plan of care! Sincerely, HALIE BabcockT
--- NOTE | 2021-08-02 16:07 | HP.PTDCSUM ---
It has been my pleasure to treat KYMBERLY REED referred by Dr. Milan Cosme DO, with the diagnosis of Right TKR 04/27/21 for a total of 14 visit(s). Discharge Date: Please see the following information for a summary of their discharge status. Subjective: Patient reports that she is doing well- back to work and just busy. R knee Pain Intensity (Out of 10): 0 % Improvement: 90 Objective/Function: pt was willing to do the gym machines on her own after warm up and stairs. Gym l;og sheet given to pt to know how to set up the machines. Goal 1:: Patient will be I with HEP and progression Goal Progress: Progressing Goal 2:: Patient will asc/desc 8 stairs recip with 1 HR Goal Progress: Progressing Goal 3:: Patient will ambulate >300 feet with LRD and no deviation noted. Goal Progress: Progressing Goal 4:: Patient will demo 0-115 degrees Goal Progress: Progressing Goal 5:: Patient will report 80% subjectively better Goal Progress: Progressing Plan: 07/01: Continue towards goals- ambulation and stairs. Right TKR 04/27/21- focus on Functional mobility. HEP Reviewed from If there are questions or concerns regarding this patient's physical therapy, please feel free to call me at [phone]. Thank you for the referral of this patient. Sincerely, Jazmine Boston, DPT Balance/Gait/Functional tests - Balance/Special Test Scores WOMAC Total Score: 32 WOMAC Percentage: 66.6700
== END 2021-07-26 19:00 | disposition home or self-care (01) ==
LOC: PT 14:00
PROVIDERS: PCP Internal Medicine; Referring Provider Orthopaedic Surgery; Visit Provider Orthopaedic Surgery
DX: Z96.651 Presence of right artificial knee joint (principal); Z47.1 Aftercare following joint replacement surgery
CPT/HCPCS: 97110; 97162; 97164

== ENCOUNTER → 2021-11-15 | Outpatient (CLI) | payer BC, SELFPAY | END | disposition home or self-care (01) | LOC: LABSPEC 16:26 | PROVIDERS: PCP Internal Medicine; Visit Provider Urology | DX: N30.00 Acute cystitis without hematuria (principal) | CPT/HCPCS: 87086; 87088; 87186 ==

== ENCOUNTER → 2021-12-10 | Outpatient (CLI) | payer BC, SELFPAY ==
--- NOTE | 2021-12-10 15:43 | US_ITS ---
STUDY: RENAL ULTRASOUND - COMPLETE REASON FOR EXAM: Female, 66 years old. ACUTE CYSTITIS W/O HEMATURIA TECHNIQUE: Ultrasound evaluation of the kidneys was performed with real-time and static horta-scale imaging. COMPARISON: None. FINDINGS: RIGHT KIDNEY: Normal location of the right kidney, which is normal in size. The right kidney measures 14.3 x 4.6 x 4.2 cm. There is a normal cortex of the right kidney. The renal cortex measures 1.4 cm. There is no right renal mass or cyst. There are no right renal calculi. There is no right hydronephrosis. DISTAL RIGHT URETER: There is non-visualization of the distal right ureter. There is no demonstrated right ureterovesical junction calculus. There is a visualized right ureteral jet. LEFT KIDNEY: Normal location of the left kidney, which is normal in size. The left kidney measures 13.9 x 6 x 4.8 cm. There is a normal cortex of the left kidney. The renal cortex measures 1.3 cm. There is no left renal mass or cyst. There are no left renal calculi. There is no left hydronephrosis. DISTAL LEFT URETER: There is non-visualization of the distal left ureter. There is no demonstrated left ureterovesical junction calculus. There is a visualized left ureteral jet. BLADDER: The distended urinary bladder has a volume of 19.8 ml. There is a normal wall thickness of the distended urinary bladder. There is no demonstrated mass within the urinary bladder. There are no demonstrated bladder calculi. US/Kidney and Bladder IMPRESSION: Normal ultrasound of the kidneys.Limited study of the bladder due to nondistention Electronically Signed: Henry Puente MD at 21:30 EDT ,
== END | disposition home or self-care (01) ==
LOC: US 15:40
PROVIDERS: PCP Internal Medicine; Referring Provider Urology; Visit Provider Urology
DX: N30.00 Acute cystitis without hematuria (principal)
CPT/HCPCS: 76770

== ENCOUNTER → 2022-05-25 | Outpatient (CLI) | payer BC, SELFPAY ==
[2022-05-25 15:32] LABS: Absolute Neutrophil Count 5.4 X10^3/uL (2.0-7.7); Basophil# 0.04 X10^3/uL; Basophil% 0.5 % (0-1); Eosinophil# 0.24 X10^3/uL; Eosinophils% 2.8 % (0-5); Hematocrit 47.4 % (37-47); Hemoglobin 16.1 g/dL (12.0-15.0); Mean Corpuscular Hgb 30.3 pg (27.0-32.0); Mean Corpuscular Volume 89.1 fL (81-99); Monocyte# 0.55 X10^3/uL; Monocyte% 6.5 % (0-10); NRBC Flagged by Analyzer 0 % (0-5); Neutrophil # 5.41 X10^3/uL (2.7-7.7); Neutrophil % 63.8 % (47-70); Platelet Count 241 K/mm3 (150-450); RBC Distribution Width CV 12.1 % (11.6-14.6); RBC Distribution Width SD 39.1 fl (35.1-43.9); Red Blood Count 5.32 M/mm3 (4.2-5.4); White Blood Count 8.5 K/mm3 (4.4-11.0)
[2022-05-25 15:46] LABS: Prothrombin Time (Protime)PT. 12.7 SECONDS (11.7-14.9)
[2022-05-25 16:04] LABS: Hemoglobin A1c 6.2 % (3.8-5.6)
[2022-05-25 16:09] LABS: ALB/GLOB Ratio 1.1 RATIO (0.9-2.4); AST(SGOT) 16 U/L (15-37); Alanine Aminotransfer ALT/SGPT 25 U/L (13-56); Albumin, Serum 3.6 g/dL (3.2-5.0); Alkaline Phosphatase 94 U/L (45-117); Anion Gap 2 (5-15); BUN 15 mg/dL (7-18); Calcium,Total 9.2 mg/dL (8.5-10.1); Chloride 109 mmol/L (98-107); EST Glomerular Filtration Rate 37 mL/min (>60); Est Glom Filt Rate - Afr Amer 45 mL/min (>60); Globulin 3.4 g/dL (2.2-4.2); Glucose 159 mg/dL (74-106); Potassium 4.1 mmol/L (3.5-5.1); Sodium Level 139 mmol/L (136-145)
== END | disposition home or self-care (01) ==
LOC: LAB 15:03
PROVIDERS: PCP Internal Medicine; Referring Provider Internal Medicine Gastroenterology; Visit Provider Internal Medicine Gastroenterology
DX: K76.0 Fatty (change of) liver, not elsewhere classified (principal)
CPT/HCPCS: 36415; 80053; 83036; 85025; 85610

== ENCOUNTER → 2022-06-27 | Outpatient (CLI) | payer BC, SELFPAY ==
[2022-06-27 18:02] LABS: Mucous, Urine 0 SEEN /hpf (<or=2+); Red Blood Cells-Urine 0 SEEN /hpf (0-5); Squamous Epithelial Cells - UA 0 SEEN /hpf (5-10)
[2022-06-27 18:26] LABS: Color, Urine Yellow (Yellow); Glucose, Dipstick Normal (Normal); Ketone-Dipstick 5 mg/dl (Negative); Leukocyte Esterase-Dipstick 100 /ul (Negative); Nitrite-Dipstick Positive (Negative); Occult Blood-Urine 10 /ul (Negative); Protein-Dipstick 30 mg/dl (Negative); Specific Gravity, Urine 1.015 (1.002-1.030); Urine Bilirubin Dipstick 1 mg/dL (Negative); Urine Clarity Sl. Cloudy (Clear); Urine Urobilinogen 4 mg/dl (Normal)
[2022-06-27 18:32] LABS: White Blood Cells 10-25 SEEN /hpf (0-5)
[2022-06-27 18:44] LABS: Bacteria RARE /hpf (None Seen)
== END | disposition home or self-care (01) ==
PROVIDERS: PCP Internal Medicine; Visit Provider Physician Assistant
DX: N39.0 Urinary tract infection, site not specified (principal)
CPT/HCPCS: 81001; 87086; 87088

== ENCOUNTER → 2022-06-29 | Outpatient (CLI) | payer BC, SELFPAY ==
[2022-06-29 19:03] LABS: Microalbumin,Random Urine 81.2 mg/L (NO RANGE EST.)
[2022-06-29 19:52] LABS: Albumin, Serum 3.8 g/dL (3.2-5.0); BUN 13 mg/dL (7-18); BUN/Creat Ratio 19.9 RATIO (10-20); Calcium,Total 9.2 mg/dL (8.5-10.1); Chloride 108 mmol/L (98-107); Creatinine, Serum 0.65 mg/dL (0.55-1.02); EST Glomerular Filtration Rate 96 mL/min (>60); Est Glom Filt Rate - Afr Amer 116 mL/min (>60); Glucose 92 mg/dL (74-106); Phosphorus 2.6 mg/dL (2.5-4.9); Potassium 3.5 mmol/L (3.5-5.1); Sodium Level 142 mmol/L (136-145); Thyroid Stim Hormone (TSH) 2.29 uIU/mL (0.358-3.74)
== END | disposition home or self-care (01) ==
LOC: MTLAB 16:55
PROVIDERS: PCP Family Medicine; Referring Provider Family Medicine; Visit Provider Family Medicine
DX: R94.4 Abnormal results of kidney function studies (principal); R63.5 Abnormal weight gain
CPT/HCPCS: 36415; 80069; 82043; 84443

== ENCOUNTER → 2022-07-08 | Outpatient (CLI) | payer BC, SELFPAY ==
[2022-07-08 17:32] LABS: Absolute Lymphocyte Count 2.53 X10^3/uL (0.83-4.51); Absolute Neutrophil Count 5.6 X10^3/uL (2.0-7.7); Basophil# 0.04 X10^3/uL; Basophil% 0.4 % (0-1); Eosinophil# 0.14 X10^3/uL; Eosinophils% 1.6 % (0-5); Hematocrit 46.3 % (37-47); Hemoglobin 16.1 g/dL (12.0-15.0); Lymphocyte # 2.53 X10^3/ul (0.83-4.51); Lymphocyte % 28.4 % (19-41); Mean Corp Hgb Conc 34.8 g/dL (32-36); Mean Corpuscular Hgb 30.8 pg (27.0-32.0); Mean Corpuscular Volume 88.7 fL (81-99); Mean Platelet Vol. 9.6 fl (6.2-12.0); Monocyte# 0.56 X10^3/uL; Monocyte% 6.3 % (0-10); NRBC Flagged by Analyzer 0 % (0-5); Neutrophil # 5.63 X10^3/uL (2.7-7.7); Neutrophil % 63.1 % (47-70); Platelet Count 246 K/mm3 (150-450); RBC Distribution Width CV 12.6 % (11.6-14.6); RBC Distribution Width SD 41.1 fl (35.1-43.9); Red Blood Count 5.22 M/mm3 (4.2-5.4); White Blood Count 8.9 K/mm3 (4.4-11.0)
[2022-07-08 17:48] LABS: Magnesium 2.1 mg/dL (1.6-2.6)
[2022-07-08 17:57] LABS: Vitamin B12 375 pg/mL (211-911)
[2022-07-08 18:03] LABS: Hemoglobin A1c 6.1 % (3.8-5.6)
== END | disposition home or self-care (01) ==
LOC: MTLAB 16:28
PROVIDERS: PCP Family Medicine; Referring Provider Family Medicine; Visit Provider Family Medicine
DX: R25.2 Cramp and spasm (principal)
CPT/HCPCS: 36415; 82607; 83036; 83735; 85025

== ENCOUNTER → 2022-12-23 | Outpatient (CLI) | payer BC, SELFPAY ==
--- NOTE | 2022-12-23 16:16 | RAD_ITS ---
STUDY: X-RAY - LEFT ANKLE REASON FOR EXAM: Female, 67 years old. Swelling TECHNIQUE: 3 view(s) of the ankle. COMPARISON: None. FINDINGS: Normal visualized distal tibia and fibula. There is a calcific fragment adjacent to the distal fibula either an accessory ossicle or old ununited fracture fragment. Normal medial and lateral malleoli. Normal tibiotalar articulation and ankle mortise. Normal visualized talus. Calcaneal spurs The visualized subtalar, talonavicular, calcaneocuboid and tarsal articulations are normal. Nonspecific soft tissue swelling RAD/Ankle min 3 Views IMPRESSION: No acute fracture or suspicious osseous lesion. Likely accessory ossicle or old ununited fracture fragment adjacent to the distal fibula Calcaneal spurs Nonspecific soft tissue swelling, a subtle occult fracture could be present and overlooked. If fracture is a strong clinical concern, recommend conservative therapy and repeat study in 7-10 days Electronically Signed: Roni Loving MD at 9:16 EST ,
--- NOTE | 2022-12-23 16:16 | RAD_ITS ---
STUDY: X-RAY - LEFT FOOT CLINICAL: Female, 67 years old. Swelling TECHNIQUE: 3 view(s) of the foot. COMPARISON: None. FINDINGS: Normal talus and tarsal bones. Calcaneal spurs Normal visualized subtalar, talonavicular, calcaneocuboid, tarsal and tarsometatarsal articulations. Normal metatarsi. There is degenerative arthrosis of the metatarsophalangeal joint of the hallux . Normal tibial and fibular sesamoid bones. Normal interphalangeal joint of the great toe. Normal phalanges of the great toe. Normal second through fifth metatarsophalangeal joints. Age consistent. PA and DIP joint arthrosis. 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 No demonstrated fracture or suspicious osseous lesion Calcaneal spurs Nonspecific soft tissue swelling Electronically Signed: Roni Loving MD at 9:15 EST ,
== END | disposition home or self-care (01) ==
LOC: MTRAD 16:16
PROVIDERS: PCP Family Medicine; Referring Provider Family Medicine; Visit Provider Family Medicine
DX: R60.0 Localized edema (principal); M79.89 Other specified soft tissue disorders
CPT/HCPCS: 73610; 73630

== ENCOUNTER → 2023-10-02 | Outpatient (CLI) | payer BC, SELFPAY | END | disposition home or self-care (01) | PROVIDERS: PCP Family Medicine; Referring Provider Family Medicine; Visit Provider Family Medicine | DX: M79.662 Pain in left lower leg (principal) | CPT/HCPCS: 93971 ==

== ENCOUNTER → 2023-10-13 | Outpatient (CLI) | payer BC, SELFPAY ==
[2023-10-13 12:33] LABS: Absolute Lymphocyte Count 1.91 X10^3/uL (0.83-4.51); Absolute Neutrophil Count 5.1 X10^3/uL (2.0-7.7); Basophil# 0.03 X10^3/uL; Basophil% 0.4 % (0-1); Eosinophil# 0.27 X10^3/uL; Eosinophils% 3.4 % (0-5); Hematocrit 45.7 % (37-47); Hemoglobin 15.3 g/dL (12.0-15.0); Lymphocyte # 1.91 X10^3/ul (0.83-4.51); Lymphocyte % 24.2 % (19-41); Mean Corp Hgb Conc 33.5 g/dL (32-36); Mean Corpuscular Hgb 29.7 pg (27.0-32.0); Mean Corpuscular Volume 88.6 fL (81-99); Mean Platelet Vol. 10.6 fl (6.2-12.0); Monocyte# 0.53 X10^3/uL; Monocyte% 6.7 % (0-10); NRBC Flagged by Analyzer 0 % (0-5); Neutrophil # 5.12 X10^3/uL (2.7-7.7); Neutrophil % 64.8 % (47-70); Platelet Count 240 K/mm3 (150-450); RBC Distribution Width CV 12.5 % (11.6-14.6); Red Blood Count 5.16 M/mm3 (4.2-5.4); White Blood Count 7.9 K/mm3 (4.4-11.0)
[2023-10-13 13:12] LABS: Vitamin D,25 Hydroxy 22.1 ng/mL
[2023-10-13 13:14] LABS: ALB/GLOB Ratio 0.9 RATIO (0.9-2.4); AST(SGOT) 17 U/L (15-37); Alanine Aminotransfer ALT/SGPT 21 U/L (13-56); Albumin, Serum 3.3 g/dL (3.2-5.0); Alkaline Phosphatase 106 U/L (45-117); Anion Gap 6 (5-15); BUN 12 mg/dL (7-18); BUN/Creat Ratio 17.4 RATIO (10-20); Chloride 110 mmol/L (98-107); Creatinine, Serum 0.69 mg/dL (0.55-1.02); EST Glomerular Filtration Rate 90 mL/min (>60); Est Glom Filt Rate - Afr Amer 109 mL/min (>60); Globulin 3.5 g/dL (2.2-4.2); Glucose 136 mg/dL (74-106); Protein, Total 6.8 g/dL (6.4-8.2); Sodium Level 142 mmol/L (136-145)
== END | disposition home or self-care (01) ==
LOC: MFPLAB 09:54
PROVIDERS: PCP Family Medicine; Visit Provider Family Medicine
DX: M79.662 Pain in left lower leg (principal); M79.89 Other specified soft tissue disorders; R53.83 Other fatigue; Z78.0 Asymptomatic menopausal state
CPT/HCPCS: 36415; 80053; 82306; 84443; 85025

== ENCOUNTER → 2023-10-30 | Outpatient (CLI) | payer BC, SELFPAY ==
--- NOTE | 2023-10-30 14:03 | BI_ITS ---
MAMMOGRAPHY - BILATERAL SCREENING REASON FOR EXAM: Female, 68 years old. Routine annual screening examination. PERTINENT HISTORY: Sister with breast cancer. Grandmother with breast cancer. TECHNIQUE: Digital bilateral breast remi (3D mammographic acquisition) in the CC and MLO projections. 2-D mediolateral oblique (MLO) and craniocaudad (CC) views of both breasts were obtained. CAD: Full Field Digital Mammography with Computer Added Detection was performed. COMPARISON: Comparison is made with prior study dated October 11, 2019. FINDINGS: Breast Composition: There are scattered areas of fibroglandular density. There are no dominant masses or suspicious calcifications. No other significant abnormalities are identified. There has been no significant change since the prior study. BI/SCRN MAMM (CAD)W/REMI BILAT IMPRESSION: Stable bilateral screening mammogram. Yearly follow-up mammogram recommended. (A) ASSESSMENT CATEGORY: BIRADS Category 1: Negative. A letter regarding these results will be sent to the patient by the facility within 30 days. Approximately 10% of breast cancers are not detected by mammography. A normal mammogram should not delay biopsy of a clinically suspicious abnormality. [id number] Electronically Signed: Martin Moreno MD at 14:44 EDT ,
== END | disposition home or self-care (01) ==
LOC: OPBI 14:02
PROVIDERS: PCP Family Medicine; Referring Provider Family Medicine; Visit Provider Family Medicine
DX: Z12.31 Encounter for screening mammogram for malignant neoplasm of breast (principal)
CPT/HCPCS: 77063; 77067

== ENCOUNTER → 2024-05-06 | Outpatient (CLI) | payer MEDICARE, OTHER, SELFPAY ==
[2024-05-06 21:41] LABS: Hepatitis C Antibody REAC (Nonreactive)
[2024-05-06 22:28] LABS: ALB/GLOB Ratio 1.5 RATIO (0.9-2.4); AST(SGOT) 18 U/L (<=31); Alanine Aminotransfer ALT/SGPT 13 U/L (<=34); Albumin, Serum 4.2 g/dL (3.4-4.8); Alkaline Phosphatase 95 U/L (35-104); Anion Gap 11 (5-15); BUN 14 mg/dL (4-19); BUN/Creat Ratio 21.8 RATIO (10-20); Calcium,Total 9.5 mg/dL (7.6-11.0); Carbon Dioxide 27.3 mmol/L (21.0-32.0); Chloride 103 mmol/L (98-108); Creatinine, Serum 0.63 mg/dL (0.70-1.20); EST Glomerular Filtration Rate 97 (>60); Globulin 2.8 g/dL (2.2-4.2); Glucose 116 mg/dL (70-99); Potassium 4.1 mmol/L (3.3-5.1); Sodium Level 141 mmol/L (133-145); Total Bilirubin 0.41 mg/dL (0.00-1.30)
[2024-05-06 23:14] LABS: Cholesterol 190 mg/dL (<=200); High Density Lipoprotein 58 mg/dL; Low Density Lipoprotein Calc. 108 mg/dL; Triglycerides 120 mg/dL; Very Low Density Lipoprotein 24 mg/dL (5-40); cholesterol:hdl ratio screen 3.29
[2024-05-07 22:31] LABS: Hemoglobin A1c 6.1 % (<=5.6)
== END | disposition home or self-care (01) ==
LOC: MTLAB 14:33
PROVIDERS: PCP Family Medicine; Referring Provider Family Medicine; Visit Provider Family Medicine
DX: E11.65 Type 2 diabetes mellitus with hyperglycemia (principal); E78.2 Mixed hyperlipidemia; Z86.19 Personal history of other infectious and parasitic diseases
CPT/HCPCS: 36415; 80053; 80061; 83036; 86803

== ENCOUNTER → 2024-10-18 | Outpatient (CLI) | payer MEDICARE, OTHER, SELFPAY | END | disposition home or self-care (01) | LOC: MTLAB 15:06 | PROVIDERS: PCP Family Medicine; Referring Provider Family Medicine; Visit Provider Family Medicine | DX: R73.03 Prediabetes (principal) | CPT/HCPCS: 36415; 83036 ==

== ENCOUNTER → 2024-12-23 | Outpatient (CLI) | payer MEDICARE, OTHER, SELFPAY ==
--- NOTE | 2024-12-23 15:24 | BI_ITS ---
EXAM: SCRN MAMM (CAD)W/REMI BILAT DATE: 12/23/2024 CLINICAL HISTORY: F, Age 69 y/o , SCREENING FOR BREAST CANCER Sister with breast cancer. Grandmother with breast cancer. TECHNIQUE: Procedure Code: [id number] Modality: MG Procedure: SCRN MAMM (CAD)W/REMI BILAT COMPARISON: Prior exam(s) dated October 30, 2023.. FINDINGS: TISSUE DENSITY: There are scattered areas of fibroglandular density. Bilateral Breast Mammographic Findings: No significant masses, calcifications or other abnormalities are identified. No suspicious masses, areas of developing architectural distortion, or suspicious calcifications. There has been no significant interval change. BI/SCRN MAMM (CAD)W/REMI BILAT IMPRESSION: Stable bilateral screening mammogram. OVERALL FINAL ASSESSMENT BI-RADS 1: NEGATIVE. RECOMMENDATION: Routine annual follow-up in 1 Year Additional Recommendation none A letter with findings and recommendations will be mailed to the patient. Reading Location: [id number]
== END | disposition home or self-care (01) ==
LOC: OPBI 15:23
PROVIDERS: PCP Family Medicine
DX: Z12.31 Encounter for screening mammogram for malignant neoplasm of breast (principal)
CPT/HCPCS: 77063; 77067